=== PATIENT | male | born 1970 | race Caucasian/White ===

== ENCOUNTER 2018-05-10 14:58 | Emergency (ER) | payer BC ==
[2018-05-10] MEDS ORDERED: ASPIRIN 81 MG CHEWABLE TABLET PO ONE (15:14)
[2018-05-10] MEDS ORDERED: 0.9 % SODIUM CHLORIDE 1000ML 1,000 ML IV PRN (15:14)
--- NOTE | 2018-05-10 15:21 | Emergency Department Record ---
History of Present Illness - General Chief Complaint: Chest Pain Stated Complaint: CHEST PAIN Time Seen by Provider: 05/10/18 15:07 Source: Patient Mode of Arrival: Ambulatory Limitations: No limitations - History of Present Illness Initial Comments: Pt with complaint of Chest pain onset yesterday while loading fire wood. Left chest 5 of 10 at worst, resolved with rest. No associated BELIA, nausea, radiation, diaphoresis. Today had two similar episodes associated with exertion at work. Resolved with rest. No DM, +elevated BP but not terated. + family hx with brother [place]. No sudden cardiac FM HX. No cough, BELIA, recent illness. and daughter in ED with pt. MD Complaint: Chest pain Onset/Timin -: Days(s) Onset: During exertion Pain Location: Left chest Pain Radiation: None Severity: Moderate Severity scale (1-10): 3 Quality: Sharp Consistency: Now resolved Improves With: Rest Worsens With: Exertion Anginal Symptoms: Other (light headed) Treatments Prior to Arrival: None - Related Data Allergies Allergy/AdvReac Type Severity Reaction Status Date / Time Penicillins AdvReac SWELLING Verified 05/10/18 15:11 (GENERAL) Travel Screening - Travel/Exposure Within Last 30 Days Have you traveled within the last 30 days?: No - Travel/Exposure Within Last Year Have you traveled outside the [place] in the last year?: No - Additonal Travel Details Have you been exposed to anyone with a communicable illness?: No - Travel Symptoms Symptom Screening: None Review of Systems Constitutional: Denies: Chills, Fever, Weakness Eyes: Denies: Vision change ENT: Denies: Congestion, Ear pain Respiratory: Denies: Cough, Dyspnea Cardiovascular: Reports: As per HPI Endocrine: Denies: Fatigue Gastrointestinal: Denies: Abdominal pain, Constipation Genitourinary: Denies: Discharge Musculoskeletal: Denies: Arthralgia, Back pain Skin: Denies: Bruising Neurological: Denies: Abnormal gait, Headache, Tremors Psychiatric: Denies: Anxiety Hematological/Lymphatic: Denies: Anemia, Blood Clots Past Medical History - SOCIAL HISTORY Smoking Status: Never smoker Alcohol Use: Occasional Drug Use: None - RESPIRATORY Hx Respiratory Disorders: Yes Hx Sleep Apnea: Yes Hx of CPAP: Yes - CARDIOVASCULAR Hx Cardio Disorders: Yes Hx Hypertension: Yes - NEURO Hx Neuro Disorders: No - GI Hx GI Disorders: No - Hx Genitourinary Disorders: No - ENDOCRINE Hx Endocrine Disorders: No Hx Diabetes: No - MUSCULOSKELETAL Hx Musculoskeletal Disorders: No - PSYCH Hx Psych Problems: No - HEMATOLOGY/ONCOLOGY Hx Hematology/Oncology Disorders: No Family Medical History Any Significant Family History?: Yes Hx Cancer: Mother, Brother/Sister Hx Diabetes: Mother Hx Heart Disease: Brother/Sister Hx Stroke: Mother Physical Exam - General General Appearance: Alert, Oriented x3, Cooperative Limitations: No limitations - Head Head exam: Atraumatic - Eye Eye exam: PERRL, EOMI - ENT ENT exam: Normal exam, Mucous membranes moist, Normal external ear exam, Normal orophraynx, TM's normal bilaterally - Neck Neck exam: Normal inspection. negative: Lymphadenopathy, Tenderness - Respiratory Respiratory exam: Normal lung sounds bilaterally. negative: Rhonchi, Wheezes - Cardiovascular Cardiovascular Exam: Regular rate, Normal rhythm, Normal heart sounds. negative : Irregular rhythm, Tachycardia Peripheral Pulses: 2+: Radial (R), Radial (L) - GI/Abdominal GI/Abdominal exam: Soft, Normal bowel sounds. negative: Distended, Tenderness - Extremities Extremities exam: Normal inspection. negative: Calf tenderness, Pedal edema, Tenderness - Back Back exam: Reports: Normal inspection. Denies: Paraspinal tenderness - Neurological Neurological exam: Alert, Normal gait, Oriented X3 - Psychiatric Psychiatric exam: Normal affect, Normal mood - Skin Skin exam: Normal color. negative: Rash Course Vital Signs 05/10/18 15:03 Pulse Rate 76 Respiratory 22 Rate Blood Pressure 180/101 Pulse Ox 97 - Reevaluation(s) Reevaluation #1: 05/10/18 16:10 All labs normal including Trop. Discussed with patient and family. Dr. Wilkes accepts patient to [facility]. Await bed assignment. No additional CP in ED Procedures - EKG Initial Date: 05/10/18 Time: 15:00 EKG: Normal EKG (NSR 75) Medical Decision Making - Lab Data Result diagrams: 05/10/18 15:10 05/10/18 15:10 Disposition Disposition: Transfer Clinical Impression: Chest pain Disposition: Acute Care Hospital Transfer Transfer To: [facility] Reason For Transfer: Specialty care Accepting Physician: Dr. Wilkes Time Discussed w/Accepting Physician: 16:13 Condition: (3) Guarded Forms: Patient Portal Access Quality - Quality Measures Quality Measures: N/A - Blood Pressure Screening Does Patient Have Any of the Following: No Blood Pressure Classification: Hypertensive Reading Systolic Measurement: 180 Diastolic Measurement: 101 Screening for High Blood Pressure: Patient Exclusion, Hx of HTN [G9744]
[2018-05-10 15:31] LABS: BASO % 0.4 % (0-6); EOS % 1.9 % (0-6); GRAN % 70.1 % (47-80); HEMOGLOBIN 15.5 gm/dl (14.0-18.0); LYMPH % 21.6 % (16-45); MEAN CELL VOLUME 95.2 fl (81-97); MEAN CORPUSCULAR HEMOGLOBIN 32.1 pg (27-33); MEAN CORPUSCULAR HGB CONC 33.7 g/dl (32-36); PLATELET COUNT 217 K/uL (130-400); RED BLOOD COUNT 4.83 M/uL (4.40-5.70); RED CELL DISTRIBUTION WIDTH 12.5 % (11.5-14.5); WHITE BLOOD COUNT W/O DIFF 10.8 K/uL (4.2-12.2)
[2018-05-10 15:40] LABS: BLOOD UREA NITROGEN 19 mg/dL (6-20); CREATININE 0.8 mg/dL (0.7-1.2); EST GLOMERULAR FILTRATION RATE > 60 mL/min
[2018-05-10 15:41] LABS: TOTAL PROTEIN 7.2 g/dL (6.6-8.7)
[2018-05-10 15:43] LABS: GLUCOSE,RANDOM 103 mg/dL (74-109); PARTIAL THROMBOPLASTIN TIME 27.2 SECONDS (24.5-39.1)
[2018-05-10 15:45] LABS: ALBUMIN 4.8 g/dL (4.0-5.0); ALT/SGPT 27 U/L (<41); AST/SGOT 19 U/L (10.0-50.0)
[2018-05-10 15:46] LABS: ALKALINE PHOSPHATASE 68 U/L (40-129)
[2018-05-10 15:47] LABS: NTpro B-NATRIURETIC PEPTIDE 53.15 pg/mL (<125)
[2018-05-10 15:58] LABS: THYROID STIMULATING HORMONE 1.81 uIU/mL (0.270-4.20)
--- NOTE | 2018-05-11 15:51 | RADIOLOGY REPORT ---
DATE: 05/10/2018 at 3:44 p.m. EXAM: TWO-VIEW CHEST. HISTORY: Chest pain which started yesterday. TECHNIQUE: PA and lateral views. COMPARISON: None. FINDINGS: Heart size is within normal limits. No acute infiltrate identified. No pleural effusion or pneumothorax evident. Somewhat shallow inspiration take. IMPRESSION: SOMEWHAT SHALLOW INSPIRATION. CHEST APPEARS ESSENTIALLY NEGATIVE WITH NO ACUTE INFILTRATE IDENTIFIED. JOB NUMBER: [id number] MTDD
== END 2018-05-10 16:49 | disposition short-term general hospital (02) ==
LOC: ER 14:58
DX: R07.89 Other chest pain (principal); R42 Dizziness and giddiness; I10 Essential (primary) hypertension
CPT/HCPCS: 71046; 80053; 83880; 84443; 84484; 85025; 85610; 85730; 93005; 96360; 99285

== ENCOUNTER 2018-11-13 17:08 | Emergency (ER) | payer BC ==
--- NOTE | 2018-11-13 17:19 | Emergency Department Record ---
History of Present Illness - General Chief complaint: Extremity Problem Stated complaint: RT HAND PINKY FINGER INJURY Time Seen by Provider: 11/13/18 17:14 Source: Patient Mode of Arrival: Ambulatory Limitations: No limitations - History of Present Illness Initial comments: 48 yo male presents with an injury to his right hand. He was loading his wood burning stove with logs. He pinched his 5th digit between the burning and a log. He has pain and swelling to the distal finger. MD Complaint: Extremity pain, Joint pain -: Hour(s) Location: Right, Hand -: Yes Arthralgia Radiation: Distal Quality: Aching Consistency: Constant, Other (Improving) Improves with: Immobilization Worsens with: Weight bearing Associated Symptoms: Denies other symptoms - Related Data Home Medications Medication Instructions Recorded Confirmed Last Taken Fenofibrate 150 mg PO DAILY 11/13/18 11/13/18 11/13/18 Losartan Potassium 25 mg PO DAILY 11/13/18 11/13/18 11/13/18 Meloxicam 15 mg PO ASDIR 11/13/18 11/13/18 11/13/18 Previous Rx's Medication Instructions Recorded Hydrocodone/APAP 5/325Mg [[place] 1 each PO Q6H #10 tab 11/13/18 5Mg/325Mg] Allergies Allergy/AdvReac Type Severity Reaction Status Date / Time Penicillins AdvReac SWELLING Verified 11/13/18 17:15 (GENERAL) Review of Systems Constitutional: Denies: Chills, Fever, Malaise, Weakness Eyes: Denies: Eye discharge ENT: Denies: Congestion, Throat pain Respiratory: Denies: Cough Cardiovascular: Denies: Chest pain Endocrine: Denies: Fatigue Gastrointestinal: Denies: Diarrhea, Nausea, Vomiting Genitourinary: Denies: Dysuria, Frequency, Hematuria Musculoskeletal: Reports: Arthralgia Skin: Denies: Bruising, Change in color, Rash Neurological: Denies: Headache Psychiatric: Denies: Anxiety Hematological/Lymphatic: Denies: Easy bleeding, Easy bruising Past Medical History - SOCIAL HISTORY Smoking Status: Never smoker Drug Use: None - RESPIRATORY Hx Respiratory Disorders: Yes Hx Sleep Apnea: Yes Hx of CPAP: Yes - CARDIOVASCULAR Hx Cardio Disorders: Yes Hx Hypertension: Yes - NEURO Hx Neuro Disorders: No - GI Hx GI Disorders: No - Hx Genitourinary Disorders: No - ENDOCRINE Hx Endocrine Disorders: No Hx Diabetes: No - MUSCULOSKELETAL Hx Musculoskeletal Disorders: No - PSYCH Hx Psych Problems: No - HEMATOLOGY/ONCOLOGY Hx Hematology/Oncology Disorders: No Family Medical History Hx Cancer: Mother, Brother/Sister Hx Diabetes: Mother Hx Heart Disease: Brother/Sister Hx Stroke: Mother Physical Exam - General General Appearance: Alert, Oriented x3, Cooperative, No acute distress Limitations: No limitations - Head Head exam: Atraumatic, Normal inspection - Eye Eye exam: Normal appearance. negative: Conjunctival injection - ENT ENT exam: Normal exam Ear exam: Normal external inspection Nasal Exam: Normal inspection Mouth exam: Normal external inspection - Neck Neck exam: Normal inspection - Cardiovascular Peripheral Pulses: 2+: Radial (L) - Rectal Rectal exam: Deferred - exam: Deferred - Extremities Extremities exam: Joint swelling, Normal capillary refill, Tenderness. negative : Normal inspection Image of Hand: 1 - mild swelling, contusion, bruising on the pad. intact nail with about 10 subungual hematoma - Neurological Neurological exam: Alert, Motor sensory deficit, Oriented X3 - Psychiatric Psychiatric exam: Normal affect, Normal mood - Skin Skin exam: Dry, Intact, Normal color, Warm Course - Reevaluation(s) Reevaluation #1: The XR was reviewed. There is a non displaced distal tuft fracture The patient will be provided a protected splint and pain control 11/13/18 17:50 Disposition Disposition: Discharge Clinical Impression: Finger fracture Qualifiers: Encounter type: initial encounter Finger: little finger Fracture type: closed Phalanx: distal Fracture alignment: nondisplaced Laterality: right Qualified Code(s): S62.666A - Nondisplaced fracture of distal phalanx of right little finger, initial encounter for closed fracture Disposition: Home, Self-Care Condition: (1) Good Instructions: Finger Fracture (ED) Additional Instructions: Call your doctor for the next available follow up appointment Return to the ER for a recheck if worse, any new concerns or questions Take the prescriptions provided as directed Review this ER visit and the tests performed with your family doctor Prescriptions: Hydrocodone/APAP 5/325Mg [[place] 5Mg/325Mg] 1 each PO Q6H #10 tab Forms: Patient Portal Access Time of Disposition: 18:28 Quality - Quality Measures Quality Measures: N/A - Blood Pressure Screening Does Patient Have Any of the Following: Active Dx of HTN Blood Pressure Classification: Hypertensive Reading Systolic Measurement: 134 Diastolic Measurement: 91 Screening for High Blood Pressure: Patient Exclusion, Hx of HTN [G9744]
[2018-11-13] MEDS ORDERED: HYDROCODONE/APAP 5/325MG TABLET PO ONE (17:20)
--- NOTE | 2018-11-15 10:38 | RADIOLOGY REPORT ---
EXAM: RIGHT FIFTH FINGER HISTORY: INJURY, SMASHED TIP OF FIFTH FINGER. TECHNIQUE: Three views of the right fifth finger were obtained. Comparison: None. Encounter: Initial. FINDINGS: Particularly on the AP view there does appear to be an undisplaced fracture through the tuft of the distal phalanx although this fracture line appears essentially superimposed over the base of the fingernail as well. It is very difficult to confirm an actual fracture line at this level on the lateral and oblique view. There is overlying soft tissue swelling. Elsewhere the right fifth finger appears negative. IMPRESSION: 1. SOFT TISSUE SWELLING DISTAL ASPECT OF THE FIFTH FINGER. 2. PROBABLE UNDISPLACED FRACTURE THROUGH THE TUFT OF THE DISTAL PHALANX ALTHOUGH ONLY CLEARLY SEEN ON THE AP VIEW AND COULD BE A SIMULATED FRACTURE LINE RELATED TO THE OVERLAPPING BASE OF THE FINGERNAIL AT THIS LEVEL. JOB NUMBER: [id number] MTDD
== END 2018-11-13 18:41 | disposition home or self-care (01) ==
LOC: ER 17:08
DX: S62.666A Nondisplaced fracture of distal phalanx of right little finger, initial encounter for closed fracture (principal); W23.1XXA Caught, crushed, jammed, or pinched between stationary objects, initial encounter; I10 Essential (primary) hypertension
CPT/HCPCS: 73140; 99283